=== PATIENT | male | born 1970 | race Caucasian/White ===

== ENCOUNTER 2017-05-25 14:39 | Emergency (ER) | payer MEDICAID ==
[~2017-05-25] VITALS: Ht 180.3 cm; Wt 76.5 kg
[~2017-05-25 14:39] MED LIST: CYCL-1 PO; DICL100G15 TOP; HYDR-565 PO; MAGN296S50 PO; NORCO10T PO; POLY119P2 PO; PRED20TA PO; [UNRECOGNIZED DRUG - OTHER] PO
[2017-05-25] MEDS ORDERED: normal saline 1000ML IV soln IV ONE ×2 (15:40→16:25)
[2017-05-25 16:20] LABS: BASOPHILS % (AUTO) 0 % (0-1); EOSINOPHILS % (AUTO) 0.8 % (0-6); HEMATOCRIT 42.8 % (42.0-52.0); HEMOGLOBIN 14.4 g/dl (14.0-17.9); LYMPHOCYTES # (AUTO) 0.5 X10'3 (1.1-4.8); LYMPHOCYTES % (AUTO) 7.7 % (21-51); MEAN CORPUSCULAR HEMOGLOBIN 32.3 PG (27.0-31.0); MEAN CORPUSCULAR HGB CONC 33.8 % (33.0-36.5); MEAN CORPUSCULAR VOLUME 95.7 FL (78-98); MEAN PLATELET VOLUME 8.2 FL (7.4-10.4); MONOCYTES # (AUTO) 0.6 X10'3 (0-0.9); MONOCYTES % (AUTO) 8.8 % (2-12); NEUTROPHILS # (AUTO) 5.3 X10'3 (1.8-7.7); NEUTROPHILS % (AUTO) 82.7 % (42-75); PLATELET COUNT 161 X10'3 (140-440); RED BLOOD COUNT 4.47 X10'6 (4.70-6.10); RED CELL DISTRIBUTION WIDTH 13.4 % (11.5-14.5); WHITE BLOOD COUNT 6.4 X10'3 (4.5-11.0)
[2017-05-25 16:36] LABS: ALANINE AMINOTRANSFERASE 22 U/L (12-78); ALKALINE PHOSPHATASE 46 IU/L (46-116); ANION GAP 6 (8-16); ASPARTATE AMINO TRANSFERASE 15 U/L (10-37); BILIRUBIN,TOTAL 0.5 MG/DL (0.1-1.0); BLOOD UREA NITROGEN 11 MG/DL (7-18); BUN/CREATININE RATIO 10.1 (5.4-32.0); CALCIUM 8.7 MG/DL (8.5-10.1); CHLORIDE 95 MMOL/L (99-107); CREATININE 1.09 MG/DL (0.60-1.10); GLUCOSE 102 MG/DL (70-104); POTASSIUM 3.9 MMOL/L (3.5-5.1); SODIUM 134 MMOL/L (135-145); TOTAL PROTEIN 7.9 G/DL (6.4-8.2); eGFR 73 ML/MIN
[2017-05-25 19:16] VITALS: BP 148/71
== END 2017-05-25 19:20 | disposition home or self-care (01) ==
LOC: ER 14:40
DX: E86.0 Dehydration (principal); J11.1 Influenza due to unidentified influenza virus with other respiratory manifestations; F12.10 Cannabis abuse, uncomplicated; G89.29 Other chronic pain; Z90.49 Acquired absence of other specified parts of digestive tract; Z98.890 Other specified postprocedural states; Z88.8 Allergy status to other drugs, medicaments and biological substances; Z79.899 Other long term (current) drug therapy
CPT/HCPCS: 36415; 71045; 80053; 83605; 84145; 85025; 96360; 96361; 99285; J7030

== ENCOUNTER 2019-02-22 10:15 | Emergency (ER) | payer MEDICAID ==
[~2019-02-22] VITALS: Ht 180.3 cm; Wt 84.1 kg
[~2019-02-22 10:15] MED LIST changes: +HYDR-4353 PO; -HYDR-565 PO
[2019-02-22 10:41] VITALS: BP 128/81
[2019-02-22] MEDS ORDERED: PRED20TA PO (11:39)
[2019-02-22] MEDS ORDERED: METH-360 PO (11:39)
[2019-02-22] MEDS ORDERED: DIAZ-351 PO (11:39)
[2019-02-22] MEDS ORDERED: dexamethasone 4mg tablet PO ONE (11:40)
[2019-02-22] MEDS ORDERED: ketorolac tromethamine 15mg/ml inj. IM ONE (11:40)
[2019-02-22] MEDS ORDERED: diazepam 5mg tablet PO ONE (11:40)
== END 2019-02-22 12:00 | disposition home or self-care (01) ==
LOC: ER 10:15
DX: S39.012A Strain of muscle, fascia and tendon of lower back, initial encounter (principal); M54.42 Lumbago with sciatica, left side; M62.830 Muscle spasm of back; G89.29 Other chronic pain; F12.90 Cannabis use, unspecified, uncomplicated; Z90.49 Acquired absence of other specified parts of digestive tract; Z98.890 Other specified postprocedural states; Z88.5 Allergy status to narcotic agent; Z79.899 Other long term (current) drug therapy; X50.1XXA Overexertion from prolonged static or awkward postures, initial encounter; Y93.89 Activity, other specified; Y92.89 Other specified places as the place of occurrence of the external cause; Y99.9 Unspecified external cause status
CPT/HCPCS: 96372; 99283; J1885

== ENCOUNTER 2019-02-24 13:40 | Emergency (ER) | payer MEDICAID ==
[~2019-02-24] VITALS: Ht 180.3 cm; Wt 85.5 kg
[~2019-02-24 13:40] MED LIST changes: +DIAZ-351 PO; +METH-360 PO
[2019-02-24] MEDS ORDERED: orphenadrine citrate 60mg/2ml inj. IM ONE (14:30)
[2019-02-24] MEDS ORDERED: HYDROcodone/acetaminophen 10/325mg tab PO ONE (14:55)
--- NOTE | 2019-02-24 16:22 | NUR ---
PATIENT IN MRI
[2019-02-24] MEDS ORDERED: HYDR-4353 PO (17:19)
[2019-02-24 17:33] VITALS: BP 132/85
== END 2019-02-24 17:38 | disposition home or self-care (01) ==
LOC: ER 13:40
DX: M54.5 Low back pain (principal); G89.29 Other chronic pain; R33.9 Retention of urine, unspecified; R20.0 Anesthesia of skin; F41.9 Anxiety disorder, unspecified; F12.90 Cannabis use, unspecified, uncomplicated; Z90.49 Acquired absence of other specified parts of digestive tract; Z98.890 Other specified postprocedural states; Z88.5 Allergy status to narcotic agent; Z88.8 Allergy status to other drugs, medicaments and biological substances; Z79.899 Other long term (current) drug therapy
CPT/HCPCS: 72148; 96372; 99284; J2360

== ENCOUNTER 2021-07-18 07:57 | Day surgery (SDC) | payer MEDICAID ==
[2021-07-10 16:03] LABS: BASOPHILS % (AUTO) 0.6 % (0-1); EOSINOPHILS # (AUTO) 0.1 X10'3 (0-0.9); EOSINOPHILS % (AUTO) 1.7 % (0-6); LYMPHOCYTES # (AUTO) 1.5 X10'3 (1.1-4.8); LYMPHOCYTES % (AUTO) 34.2 % (21-51); MEAN CORPUSCULAR HEMOGLOBIN 32.3 PG (27.0-31.0); MEAN PLATELET VOLUME 9.1 FL (7.4-10.4); MONOCYTES # (AUTO) 0.5 X10'3 (0-0.9); MONOCYTES % (AUTO) 10.7 % (2-12); NEUTROPHILS # (AUTO) 2.2 X10'3 (1.8-7.7); NEUTROPHILS % (AUTO) 52.8 % (42-75); PRE OP PLATELET COUNT 203 X10'3 (140-440); RED BLOOD COUNT 4.63 X10'6 (4.70-6.10); RED CELL DISTRIBUTION WIDTH 14.2 % (11.5-14.5)
[2021-07-10 16:19] LABS: ALBUMIN/GLOBULIN RATIO 1.3 (1.1-1.5); ALKALINE PHOSPHATASE 39 IU/L (46-116); BLOOD UREA NITROGEN 21 MG/DL (7-18); BUN/CREATININE RATIO 16.4 (5.4-32.0); CALCIUM 9.1 MG/DL (8.5-10.1); CHLORIDE 101 MMOL/L (99-107); CREATININE 1.28 MG/DL (0.60-1.10); PRE OP ALT 37 U/L (30-65); PRE OP ANION GAP 6 (8-16); PRE OP AST 32 U/L (10-37); PRE OP BILIRUB, TOTAL 0.4 MG/DL (0.0-1.0); PRE OP GLUCOSE 88 MG/DL (70-104); PRE OP POTASSIUM 4.1 MMOL/L (3.4-5.1); PRE OP SODIUM 138 MMOL/L (135-145); TOTAL CARBON DIOXIDE 30.6 MMOL/L (24-32); TOTAL PROTEIN 7.2 G/DL (6.4-8.2); eGFR 60 ML/MIN
[~2021-07-18] VITALS: Ht 180.3 cm; Wt 82.0 kg
[~2021-07-18 07:57] MED LIST changes: +BUPIVAcaine 0.5% inj/PF 30 ML ONE; -CYCL-1 PO; -DIAZ-351 PO; -DICL100G15 TOP; -HYDR-4353 PO; -MAGN296S50 PO; -METH-360 PO; +NO HOME MEDS; -NORCO10T PO; -POLY119P2 PO; -PRED20TA PO; -[UNRECOGNIZED DRUG - OTHER] PO; +cefazolin/dext.iso 2gm/50ml IV ONE; +famotidine 20mg tablet PO ONE; +ringers solution, lacted 1,000 ML IV SCH
[2021-07-18 08:05] VITALS: BP 138/77
[2021-07-18] MEDS ORDERED: LIDOcaine 0.5% (5mg/ml) 50ml vial ONE (09:38)
[2021-07-18] MEDS ORDERED: FENTANYL CITRATE/PF 50 MCG/1 ML VIAL ONE (09:44)
[2021-07-18] MEDS ORDERED: MIDAZolam 1 MG/ML 5ML VIAL ONE (09:46)
[2021-07-18] MEDS ORDERED: propofol inj 20 ML IV ONE (10:14)
[2021-07-18] MEDS ORDERED: meperidine/PF 25mg/ml syringe IV PRN ×3 (10:15)
[2021-07-18] MEDS ORDERED: ringers solution, lacted 1,000 ML IV SCH (10:15)
[2021-07-18] MEDS ORDERED: proCHLORperazine 10 MG/2 ml inj IV PRN (10:15)
[2021-07-18] MEDS ORDERED: morphine 4 MG/ML inj SYRINge IV PRN (10:15)
[2021-07-18] MEDS ORDERED: morphine 2 MG/ML inj. syringe IV PRN (10:15)
[2021-07-18] MEDS ORDERED: ondansetron/PF 4mg/2ml inj IV PRN (10:15)
[2021-07-18 10:20] VITALS: BP 106/60
--- NOTE | 2021-07-18 10:20 | NUR ---
Received from OR via , accompanied by Anesthesiologist DR MERAZ and report given by Anesthesiolgist. AWAKENS TO VOICE. VITALS STABLE. DRESSINGS DI. CRICKET PAIN. FINGERS WARM AND PINK.
[2021-07-18 10:30] VITALS: BP 114/66
[2021-07-18 10:40] VITALS: BP 120/83
[2021-07-18 10:50] VITALS: BP 113/81
[2021-07-18 11:00] VITALS: BP 129/84
--- NOTE | 2021-07-18 11:20 | NUR ---
AWAKE AND ORIENTED. VITALS STABLE. DRESSINGS DI. CRICKET PAIN. HOME WITH HIS SPOUSE AT THIS TIME.
== END 2021-07-18 11:20 | disposition home or self-care (01) ==
LOC: PAS 07:57
PROVIDERS: ATTEND Orthopaedic Surgery Hand Surgery
DX: G56.01 Carpal tunnel syndrome, right upper limb (principal); G56.21 Lesion of ulnar nerve, right upper limb; G89.29 Other chronic pain; Z20.822 Contact with and (suspected) exposure to COVID-19; Z79.899 Other long term (current) drug therapy; Z88.8 Allergy status to other drugs, medicaments and biological substances; Z88.5 Allergy status to narcotic agent; Z98.890 Other specified postprocedural states; Z72.89 Other problems related to lifestyle
CPT/HCPCS: 29848; 36415; 64718; 80053; 82948; 85025; 93005; J2175; J2250; J2704; J3010; J3490; J7030; J7120; S0020; U0003; U0005; Z7506; Z7512; A4215; A6449; A7000

== ENCOUNTER 2023-11-26 08:20 | Outpatient (CLI) | payer MEDICAID ==
[~2023-11-26 08:20] MED LIST changes: -BUPIVAcaine 0.5% inj/PF 30 ML ONE; -cefazolin/dext.iso 2gm/50ml IV ONE; -famotidine 20mg tablet PO ONE; -ringers solution, lacted 1,000 ML IV SCH
== END 2023-11-26 23:59 | disposition home or self-care (01) ==
LOC: MRI 08:20
PROVIDERS: ATTEND Physician Assistant
DX: M19.022 Primary osteoarthritis, left elbow (principal); M25.522 Pain in left elbow; M77.8 Other enthesopathies, not elsewhere classified
CPT/HCPCS: 73221

== ENCOUNTER 2024-11-09 22:00 | Emergency (ER) | payer MEDICAID ==
[~2024-11-09] VITALS: Ht 180.3 cm; Wt 84.6 kg
[2024-11-10 00:22] VITALS: BP 135/98; PULSE 88; RESP 16; TEMP 98.1; O2SAT 95
--- NOTE | 2024-11-10 01:21 | Physician Documentation ---
History of Present Illness ~ Chief Complaint: See Chief Complaint Stated Complaint: BUTTOCKS PAIN Time Seen by MD: 01:11 Primary Medical Doctor: DUANE SEBASTIAN [facility] Patient presents to the emergency room with rectal pain. He noticed a purple bubble at the 4 o'clock position and became very concerned about possible cancer versus other pathologic process. He does have history of constipation and does lift weights Medication Reconciliation Allergies: Coded Allergies: morphine (Verified Allergy, Intermediate, ABD PAIN, W/VOMITING, 11/09/24) duloxetine (Verified Allergy, Mild, DEPRESSION, 11/09/24) duloxetine HCl (Verified Allergy, Unknown, 11/09/24) Miscellaneous Medications Home Med List (No Home Medications), (Reported) Past Medical History Past Medical History: Chronic Pain, Chronic Back Pain, Anxiety Past Surgical History: appendectomy, orthopedic surgeries Alcohol Use: Occasionally Drug Use: marijuana Lives with: Spouse Lives In: Home Occupation: employed Review of Systems ROS All review of systems negative except as per HPI Physical Exam Vital Signs: Temperature: 98.1, Source: Oral, Heart Rate: 88, Respiratory Rate: 16, BP: 135/98, Pulse Oximetry: 95, Weight: 84.600 Oxygen Flow Rate: 0 Physical Exam General: Patient is awake, alert, oriented x4, anxious Eyes: Conjunctival normal. EOMI. PERRL. ENT: Mucous membranes moist. Neck: Supple, trachea is midline. Chest: Clear to auscultation bilaterally without rales, rhonchi, or wheezes. There is no accessory muscle use or retractions. Cardiac: RRR without murmurs, gallops, or rubs. : No appreciable abnormality and rectal exam Progress Results/Orders Results/Orders Vital Signs 11/09/24 11/10/24 22:13 00:22 Temp 98.6 98.1 Pulse 96 88 Resp 16 16 B/P (MAP) 139/88 135/98 (110) Pulse Ox 98 95 O2 Flow Rate 0 0 Medical Decision Making Findings Patient presents to the emergency room for evaluation of rectal pain as per HPI. Differentials include but are not limited to hemorrhoid, perirectal abscess, cancer, ingrown hair. Although I could not appreciate hemorrhoid on physical exam picture that provided was consistent with hemorrhoid and we will treat him as such. I do not perform digital rectal exam as I noted caused significant pain and with his history and picture he provided I feel this is unnecessary Departure Disposition: HOME / SELF CARE / HOMELESS Impression: Primary Impression: Hemorrhoid Condition: Stable Discharge Instructions: Hemorrhoids, [id number] Additional Instructions: Avoid spending long periods of time on toilet and straining. We will provide some stool softeners and topical medications. Follow up with your doctor for colonoscopy Referrals: NO PRIMARY CARE PROVIDER (PCP) Prescriptions Hydrocortisone (Anusol-Hc) 2.5 % Cream..g. 1 APPLIC TOP Q12H for 12 Days, #30 GM 0 Refills Prov: CARMELO LOZOYA MD 11/10/24 Docusate Sodium (Dulcolax Stool Softener) 100 Mg Capsule 1 CAP PO DAILY for 30 Days, #30 CAP 0 Refills Prov: CARMELO LOZOYA MD 11/10/24 Education Educated: Patient Educated regarding: diagnosis, treatment, need for follow up Signature Scribe Signature: No scribe Attestation: The note accurately reflects work and decisions made by me.Carmelo Lozoya MD 11/10/24 01:24 CARMELO LOZOYA MD Nov 10, 2024 01:21
[2024-11-10] MEDS ORDERED: HYDR30CR79 TOP (01:24)
[2024-11-10] MEDS ORDERED: DOCU-171 PO (01:24)
== END 2024-11-10 01:58 | disposition home or self-care (01) ==
LOC: ER 22:00
DX: K64.9 Unspecified hemorrhoids (principal); F12.90 Cannabis use, unspecified, uncomplicated; F41.9 Anxiety disorder, unspecified; Z88.5 Allergy status to narcotic agent; Z88.8 Allergy status to other drugs, medicaments and biological substances; Z90.49 Acquired absence of other specified parts of digestive tract; Z72.89 Other problems related to lifestyle
CPT/HCPCS: 99282